=== PATIENT | male | born 1965 | race Caucasian/White ===

== ENCOUNTER → 2019-03-28 | Outpatient (CLI) | payer OTHER | LOC: M.WC 07:59 | DX: T81.89XA Other complications of procedures, not elsewhere classified, initial encounter (principal); L03.319 Cellulitis of trunk, unspecified; E11.65 Type 2 diabetes mellitus with hyperglycemia; E78.5 Hyperlipidemia, unspecified; E66.9 Obesity, unspecified; G47.30 Sleep apnea, unspecified; Z79.4 Long term (current) use of insulin; Z79.82 Long term (current) use of aspirin; Y92.89 Other specified places as the place of occurrence of the external cause; Y83.8 Other surgical procedures as the cause of abnormal reaction of the patient, or of later complication, without mention of misadventure at the time of the procedure ==

== ENCOUNTER → 2019-03-31 | Outpatient (CLI) | payer OTHER | LOC: M.WC 04:59 | DX: T81.89XD Other complications of procedures, not elsewhere classified, subsequent encounter (principal); L03.319 Cellulitis of trunk, unspecified; E78.5 Hyperlipidemia, unspecified; E66.9 Obesity, unspecified; G47.30 Sleep apnea, unspecified; Z68.36 Body mass index [BMI] 36.0-36.9, adult; Y83.8 Other surgical procedures as the cause of abnormal reaction of the patient, or of later complication, without mention of misadventure at the time of the procedure ==

== ENCOUNTER → 2019-04-02 | Outpatient (CLI) | payer OTHER | LOC: M.WC 05:24 | DX: T81.89XD Other complications of procedures, not elsewhere classified, subsequent encounter (principal); L03.319 Cellulitis of trunk, unspecified; E11.65 Type 2 diabetes mellitus with hyperglycemia; E78.5 Hyperlipidemia, unspecified; E66.9 Obesity, unspecified; G47.30 Sleep apnea, unspecified; Z79.4 Long term (current) use of insulin; Z79.82 Long term (current) use of aspirin; Z68.36 Body mass index [BMI] 36.0-36.9, adult; Y83.8 Other surgical procedures as the cause of abnormal reaction of the patient, or of later complication, without mention of misadventure at the time of the procedure ==

== ENCOUNTER → 2019-04-04 | Outpatient (CLI) | payer OTHER | LOC: M.WC 05:19 | DX: T81.89XD Other complications of procedures, not elsewhere classified, subsequent encounter (principal); L03.319 Cellulitis of trunk, unspecified; L02.212 Cutaneous abscess of back [any part, except buttock and flank]; E11.65 Type 2 diabetes mellitus with hyperglycemia; E78.5 Hyperlipidemia, unspecified; E66.9 Obesity, unspecified; G47.30 Sleep apnea, unspecified; Z68.36 Body mass index [BMI] 36.0-36.9, adult; Y83.8 Other surgical procedures as the cause of abnormal reaction of the patient, or of later complication, without mention of misadventure at the time of the procedure ==

== ENCOUNTER → 2019-04-07 | Outpatient (CLI) | payer OTHER | LOC: M.WC 01:30 | DX: T81.89XD Other complications of procedures, not elsewhere classified, subsequent encounter (principal); E11.65 Type 2 diabetes mellitus with hyperglycemia; E78.5 Hyperlipidemia, unspecified; E66.9 Obesity, unspecified; G47.30 Sleep apnea, unspecified; Z68.36 Body mass index [BMI] 36.0-36.9, adult; Y83.8 Other surgical procedures as the cause of abnormal reaction of the patient, or of later complication, without mention of misadventure at the time of the procedure ==

== ENCOUNTER → 2019-04-09 | Outpatient (CLI) | payer OTHER | LOC: M.WC 05:09 | DX: T81.89XD Other complications of procedures, not elsewhere classified, subsequent encounter (principal); L03.319 Cellulitis of trunk, unspecified; E11.65 Type 2 diabetes mellitus with hyperglycemia; E78.5 Hyperlipidemia, unspecified; E66.9 Obesity, unspecified; G47.30 Sleep apnea, unspecified; Z68.36 Body mass index [BMI] 36.0-36.9, adult; Y83.8 Other surgical procedures as the cause of abnormal reaction of the patient, or of later complication, without mention of misadventure at the time of the procedure ==

== ENCOUNTER → 2019-04-11 | Outpatient (CLI) | payer OTHER | LOC: M.WC 05:37 | DX: T81.89XD Other complications of procedures, not elsewhere classified, subsequent encounter (principal); L03.319 Cellulitis of trunk, unspecified; L02.212 Cutaneous abscess of back [any part, except buttock and flank]; E11.65 Type 2 diabetes mellitus with hyperglycemia; E78.5 Hyperlipidemia, unspecified; E66.9 Obesity, unspecified; G47.30 Sleep apnea, unspecified; Z68.36 Body mass index [BMI] 36.0-36.9, adult; Y83.8 Other surgical procedures as the cause of abnormal reaction of the patient, or of later complication, without mention of misadventure at the time of the procedure ==

== ENCOUNTER → 2019-04-14 | Outpatient (CLI) | payer OTHER | LOC: M.WC 01:34 | DX: T81.89XD Other complications of procedures, not elsewhere classified, subsequent encounter (principal); L02.212 Cutaneous abscess of back [any part, except buttock and flank]; L03.319 Cellulitis of trunk, unspecified; E11.65 Type 2 diabetes mellitus with hyperglycemia; E66.9 Obesity, unspecified; E78.5 Hyperlipidemia, unspecified; G47.30 Sleep apnea, unspecified; Z68.36 Body mass index [BMI] 36.0-36.9, adult; Y83.8 Other surgical procedures as the cause of abnormal reaction of the patient, or of later complication, without mention of misadventure at the time of the procedure ==

== ENCOUNTER → 2019-04-16 | Outpatient (CLI) | payer OTHER | LOC: M.WC 05:08 | DX: T81.89XD Other complications of procedures, not elsewhere classified, subsequent encounter (principal); L02.212 Cutaneous abscess of back [any part, except buttock and flank]; L03.319 Cellulitis of trunk, unspecified; E11.65 Type 2 diabetes mellitus with hyperglycemia; E78.5 Hyperlipidemia, unspecified; E66.9 Obesity, unspecified; G47.30 Sleep apnea, unspecified; Z68.36 Body mass index [BMI] 36.0-36.9, adult; Y83.8 Other surgical procedures as the cause of abnormal reaction of the patient, or of later complication, without mention of misadventure at the time of the procedure ==

== ENCOUNTER → 2019-04-18 | Outpatient (CLI) | payer OTHER | LOC: M.WC 05:05 | DX: T81.89XD Other complications of procedures, not elsewhere classified, subsequent encounter (principal); L02.212 Cutaneous abscess of back [any part, except buttock and flank]; L03.319 Cellulitis of trunk, unspecified; E11.65 Type 2 diabetes mellitus with hyperglycemia; E78.5 Hyperlipidemia, unspecified; E66.9 Obesity, unspecified; G47.30 Sleep apnea, unspecified; Z68.36 Body mass index [BMI] 36.0-36.9, adult; Y83.8 Other surgical procedures as the cause of abnormal reaction of the patient, or of later complication, without mention of misadventure at the time of the procedure ==

== ENCOUNTER → 2019-05-02 | Outpatient (CLI) | payer OTHER | LOC: M.WC 01:40 | DX: T81.89XD Other complications of procedures, not elsewhere classified, subsequent encounter (principal); G47.30 Sleep apnea, unspecified; E11.65 Type 2 diabetes mellitus with hyperglycemia; E78.5 Hyperlipidemia, unspecified; E66.9 Obesity, unspecified; Z68.36 Body mass index [BMI] 36.0-36.9, adult; Y83.8 Other surgical procedures as the cause of abnormal reaction of the patient, or of later complication, without mention of misadventure at the time of the procedure ==

== ENCOUNTER → 2019-05-09 | Outpatient (CLI) | payer OTHER | LOC: M.WC 04:37 | DX: T81.89XD Other complications of procedures, not elsewhere classified, subsequent encounter (principal); L03.319 Cellulitis of trunk, unspecified; E11.65 Type 2 diabetes mellitus with hyperglycemia; E66.9 Obesity, unspecified; E78.5 Hyperlipidemia, unspecified; G47.30 Sleep apnea, unspecified; Z68.36 Body mass index [BMI] 36.0-36.9, adult; Y83.8 Other surgical procedures as the cause of abnormal reaction of the patient, or of later complication, without mention of misadventure at the time of the procedure ==

== ENCOUNTER → 2019-05-23 | Outpatient (CLI) | payer OTHER | LOC: M.WC 04:49 | DX: T81.89XD Other complications of procedures, not elsewhere classified, subsequent encounter (principal); L02.212 Cutaneous abscess of back [any part, except buttock and flank]; L03.311 Cellulitis of abdominal wall; E11.65 Type 2 diabetes mellitus with hyperglycemia; E78.5 Hyperlipidemia, unspecified; E66.9 Obesity, unspecified; G47.30 Sleep apnea, unspecified; Z68.36 Body mass index [BMI] 36.0-36.9, adult; Y83.8 Other surgical procedures as the cause of abnormal reaction of the patient, or of later complication, without mention of misadventure at the time of the procedure ==